=== PATIENT | male | born 1995 | race Caucasian/White ===

== ENCOUNTER → 2019-05-21 17:32 | Outpatient (CLI) | payer OTHER, SELFPAY ==
--- NOTE | 2019-05-21 17:35 | DI.MRI.S_ITS ---
PROCEDURE: MR KNEE RT WO CON INDICATIONS: RIGHT KNEE PAIN POST LATERAL TRAUMA TECHNIQUE: Noncontrast sagittal PD fast spin echo and T2 fast spin echo with fat saturation, sagittal 3-D FLASH with fat saturation; coronal T1 spin echo and PD fast spin echo with fat saturation, and axial PD fast spin echo with fat saturation through the knee. COMPARISON: None. FINDINGS: Image quality: Excellent. Menisci: The medial and lateral menisci demonstrate normal morphology and internal signal. The meniscal root ligaments appear intact. Cruciate ligaments: The anterior and posterior cruciate ligaments appear intact. Medial structures: The medial collateral ligament appears intact but there is a slight amount of edema along its border as it extends contiguously into the medial patellar retinaculum. Patellar alignment is normal. The posterior oblique ligament, semimembranosus tendon insertions, oblique popliteal ligament, and meniscocapsular junction appear intact. Visualized portions of the pes anserinus tendons appear normal. No abnormal bursal fluid. Lateral structures: The lateral collateral ligament, long and short heads of the biceps femoris tendon appear intact. The popliteus tendon appears normal; the popliteofibular ligament appears intact. The posterosuperior and anteroinferior popliteomeniscal fascicles appear intact. The arcuate and fabellofibular ligaments appear intact, on either side of the lateral inferior geniculate artery. Iliotibial band appears normal. Anterior structures: The quadriceps and patellar tendons appear intact. Patellar alignment is normal. No femoral trochlear dysplasia or ventral trochlear prominence. No edema in the infrapatellar fat pad. Bones and cartilage: There is significant traumatic injury to the lateral tibial plateau there are prominent marrow edema is present and there is a focal osteochondral impaction injury only slightly depressed, with maximal AP dimension in this area injury 2.2 cm and maximal transverse dimension 1.3 cm with a craniocaudad extent of 7 mm.. In addition to prominent underlying marrow space edema there are several faint vertically oriented trabecular areas of injury, indicating intratrabecular fractures in this clinical circumstance. The cartilage of the medial and lateral femorotibial compartments, as well as the patellofemoral compartment, otherwise appears normal in thickness. There is associated marrow edema involving the fibular head, mild in severity in comparison, immediately below the area of prior significant tibial injury noted above Joint space: There is mild excess of knee joint fluid. No Jolly's cyst. Normal appearing synovial plicae are incidentally noted. IMPRESSION: Significant traumatic injury to the right knee has occurred with a osteochondral impaction fracture involving the far lateral border of the lateral tibial plateau, with prominent associated underlying marrow edema and mild marrow edema involving the fibular head without fracture. A small joint effusion is present without intra-articular loose body. Area of osteochondral impaction measures up to 2.2 x 1.3 x 0.7 centimeters. No ligamentous injury is seen. Mild secondary edema involves the medial collateral ligament and patellar retinaculum, representing a mild contrecoup injury. Dictated by: Alexey Tijerina M.D. on 05/25/2019 at 9:04 Approved by: Alexey Tijerina M.D. on 05/25/2019 at 9:12
== END ==
PROVIDERS: Visit Provider Family Medicine
DX: M25.561 Pain in right knee (principal); S82.141A Displaced bicondylar fracture of right tibia, initial encounter for closed fracture; X58.XXXA Exposure to other specified factors, initial encounter
CPT/HCPCS: 73721